=== PATIENT | male | born 1985 | race African-American/Black ===

== ENCOUNTER 2020-06-13 13:54 | Emergency (ER) | payer OTHER, SELFPAY ==
--- NOTE | ~2020-06-13 | CT_ITS ---
EXAMINATION: CT abdomen pelvis wo con DATE: 06/13/2020 14:53 INDICATION: Abdominal pain. Back pain. Hematuria. TECHNIQUE: Computed tomography (CT) of the abdomen and pelvis was performed without intravenous contr ast. Automated exposure control and iterative reconstruction technique were employed. The dose-length product was 919.41 mGy-cm. COMPARISON: None. FINDINGS: The visualized portions of the lung bases are clear without pneumonia or pleural effusion. The heart size is normal. No pericardial effusion. The liver, gallbladder, spleen, pancreas, adrenal glands, and kidneys are normal. There is no urolithiasis. There are no dilated loops of bowel. The ap pendix is normal. There are no pathologically enlarged lymph nodes. There is no free intraperitoneal fluid. There is mild lumbar spondylosis. IMPRESSION: 1. No urolithiasis. Reviewed, dictated and finalized at location B. IMPRESSION: 1. No urolithiasis.
[2020-06-13 13:55] VITALS: BP 135/87; PULSE 67; RESP 16; TEMP 36.6; O2SAT 99
[2020-06-13 14:28] LABS: Add Urine Microscopic? YES; Appearance Urine Clear (Clear); Bilirubin Urine Negative (Negative); Blood Urine 1+ (Negative); Color Urine Yellow (Yellow); Glucose Urine UA Negative (Negative); Ketones Urine Negative (Negative); Leukocyte Esterase Ur Trace LEU/UL (Negative); Mucus Urine Rare /lpf; Nitrate Urine Negative (Negative); Protein Urine Negative (Negative); Specific Grav Ur 1.025 (1.001-1.035); Squamous Epithelial Cell Urine Occasional /hpf (Few); Urobilinogen Urine Negative mg/dL (<2.0)
[2020-06-13 14:53] LABS: Basophils Percent Auto 0.3 % (0.2-1.2); Eosinophils Percent Auto 0.5 % (0-4.4); Hematocrit 45.9 % (42.0-52.0); Hemoglobin 16.2 g/dL (14.0-18.0); Immature Granulocyte Absolute 0.03 K/mm3 (0.00-0.031); Immature Granulocyte Percent A 0.5 % (0-0.5); Lymphocytes Absolute Auto 1.82 K/mm3 (0.9-3.2); Lymphocytes Percent Auto 30.9 % (18.3-44.2); Mean Corpuscular HGB Conc 35.3 g/dl (32-36); Mean Corpuscular Hemoglobin 30.5 pg (26-34); Mean Corpuscular Volume 86.3 fl (80-100); Mean Platelet Volume 10.2 fl (7.4-10.4); Monocytes Absolute Auto 0.7 K/mm3 (0.1-0.6); Monocytes Percent Auto 11.4 % (2.6-8.5); Neutrophils Absolute Auto 3.3 K/mm3 (1.3-6.7); Neutrophils Percent Auto 56.4 % (45.5-73.1); Platelet Count Result 229 k/mm3 (150-375); Red Blood Count 5.32 M/mm3 (4.6-6.20); Red Cell Distribution Width 13.1 % (11.5-14.5); White Blood Count 5.9 K/mm3 (4.5-10.0)
--- NOTE | 2020-06-13 14:54 | PC.NURSE ---
spoke with shyanne in the lab, states she will attempt to add on the std cultures to the urine sample that was already in the lab.
[2020-06-13 15:04] LABS: Anion Gap 5 mmol/L (8-16); Blood Urea Nitrogen 20 mg/dL (9-20); Calcium 9.3 mg/dL (8.4-10.2); Carbon Dioxide 31 mmol/L (22-30); Chloride 103 mmol/L (98-107); Estimated CRCL calculation 116 ml/min; Estimated Glomerular Filt Rate > 60; Glucose 85 mg/dL (75-110); Potassium 4.6 mmol/L (3.4-5.0); Sodium 139 mmol/L (137-145)
--- NOTE | 2020-06-13 16:08 | ED.MALEGU ---
HPI - Male Genitourinary General Chief complaint: Urogenital-Male Stated complaint: BLOOD IN URINE Time Seen by Provider: 06/13/20 14:24 Source: patient Mode of arrival: ambulatory Limitations: no limitations History of Present Illness HPI Narrative: This is a 34-year-old male that presents to the emergency department for dysuria since this morning. Also reports hematuria. Reports some intermittent abdominal and low back pain. No known injury or trauma. Reports he does not think he has any concern for STDs. Denies fever, nausea, vomiting. Related Data Allergies Allergy/AdvReac Type Severity Reaction Status Date / Time No Known Allergies Allergy Verified 09/15/19 22:22 Review of Systems Review of Systems: Narrative: CONSTITUTIONAL: Denies fever GASTROINTESTINAL: Reports abdominal pain. Denies nausea, vomiting GENITOURINARY: Reports dysuria and hematuria. SKIN: Denies rash All systems reviewed & are unremarkable except as noted in HPI and below PMFSH Past Medical History Medical History (Updated 06/13/20 @ 16:19 by Renae Espinoza PA-C) Healthy adult male Surgical History Surgical History (Updated 09/15/19 @ 23:15 by Crispin Crowell) No history of previous surgery Social History Social History (Updated 06/13/20 @ 16:16 by Renae Espinoza PA-C) Smoking status: Current every day smoker Tobacco type: e-cigarettes/vaping Substance use type: marijuana Gender identity (if verbalized by the patient): Male Exam Narrative: Exam Narrative: GENERAL: Well-appearing, well-nourished, and in no acute distress. HEAD: Normocephalic, atraumatic. EYES: EOMI. CHEST: Clear to auscultation. No respiratory distress. No wheezes rales or rhonchi HEART: Regular rate and rhythm. No murmur heard. Normal peripheral pulses. ABDOMEN: Soft, nontender, nondistended, normal active bowel sounds. No CVA tenderness EXTREMITIES: Normal range of motion. No edema. SKIN: Warm, dry, no rash. NEURO: No focal deficits. Alert and oriented x3. PSYCH: Normal mood and affect Course Vital Signs Vital signs: Vital Signs Temperature 97.9 F 06/13/20 13:55 Pulse Rate 67 06/13/20 13:55 Respiratory Rate 16 06/13/20 13:55 Blood Pressure 135/87 06/13/20 13:55 Pulse Oximetry 99 06/13/20 13:55 Temperature 97.9 F 06/13/20 13:55 Pulse Rate 67 06/13/20 13:55 Respiratory Rate 16 06/13/20 13:55 Blood Pressure 135/87 06/13/20 13:55 Pulse Oximetry 99 06/13/20 13:55 MDM - Male Genitourinary MDM Narrative Medical decision making narrative: Patient presents the emergency department for dysuria and hematuria. He is afebrile and nontoxic-appearing. CBC is without leukocytosis. Metabolic panel without concerning findings. UA with 10-15 white blood cells, red blood cells, and trace leuk esterase. This will go for a culture. Patient did want to be tested for STDs. Chlamydia, gonorrhea, and trichomonas sent. Patient reports he will follow-up with results, and does not want to be presumptively treated. CT scan of the abdomen and pelvis is without acute findings. Patient stable and felt appropriate for further outpatient evaluation. Patient will be treated with oral antibiotics for urinary tract infection. He is to follow-up with primary care doctor. He was given warnings to return to the ER Lab Data Attestation: I reviewed the patient's lab results. Result diagrams: 06/13/20 14:46 06/13/20 14:46 Labs: Lab Results 06/13/20 06/13/20 06/13/20 Range/Units 14:11 14:11 14:46 WBC 5.9 (4.5-10.0) K/mm3 RBC 5.32 (4.6-6.20) M/mm3 Hgb 16.2 (14.0-18.0) g/dL Hct 45.9 (42.0-52.0) % MCV 86.3 (80-100) fl MCH 30.5 (26-34) pg MCHC 35.3 (32-36) g/dl RDW 13.1 (11.5-14.5) % Plt Count 229 (150-375) k/mm3 MPV 10.2 (7.4-10.4) fl Immature Gran % (Auto) 0.5 (0-0.5) % Neut % (Auto) 56.4 (45.5-73.1) % Lymph % (Auto) 30.9 (18.3-44.2)
[2020-06-13 16:18] VITALS: BP 118/68; PULSE 78; RESP 16; O2SAT 100
== END 2020-06-13 16:38 | disposition home or self-care (01) ==
PROVIDERS: Emergency Medicine; Physician Assistant; Emergency Provider Emergency Medicine
DX: N30.01 Acute cystitis with hematuria (principal); F17.290 Nicotine dependence, other tobacco product, uncomplicated
CPT/HCPCS: 36415; 74176; 80048; 81001; 85025; 87086; 87491; 87591; 87661; 99284

== ENCOUNTER 2020-07-04 14:57 | Emergency (ER) | payer OTHER, SELFPAY ==
[2020-07-04 14:59] VITALS: BP 129/75; PULSE 66; RESP 20; TEMP 36.1; O2SAT 100
[2020-07-04 16:11] LABS: Add Urine Microscopic? YES; Appearance Urine Clear (Clear); Bilirubin Urine Negative (Negative); Blood Urine 1+ (Negative); Color Urine Yellow (Yellow); Glucose Urine UA Negative (Negative); Ketones Urine Negative (Negative); Leukocyte Esterase Ur 1+ LEU/UL (Negative); Mucus Urine Few /lpf; Nitrate Urine Negative (Negative); Protein Urine 1+ mg/dL (Negative); RBC Urine 0-2 /hpf (0-2); Squamous Epithelial Cell Urine Rare /hpf (Few); Urobilinogen Urine Negative mg/dL (<2.0)
[2020-07-04 16:12] LABS: Specific Grav Ur 1.031 (1.001-1.035)
--- NOTE | 2020-07-04 17:16 | ED.MALEGU ---
HPI - Male Genitourinary General Chief complaint: Urogenital-Male Stated complaint: hematuria, recent uti Time Seen by Provider: 07/04/20 16:56 Source: patient Mode of arrival: ambulatory Limitations: no limitations History of Present Illness HPI Narrative: This is a 34 year old male that presents to the ER for hematuria this morning. Associated with intermittent dysuria. I saw him for this last month and STD testing was negative. He denies any new partners since. Reports relief of symptoms with antibiotics, but then symptoms have returned. Reports some trouble with his stream. He does not feel like he is retaining urine though. Denies fever, abdominal pain, vomiting, or flank pain. Related Data Allergies Allergy/AdvReac Type Severity Reaction Status Date / Time No Known Allergies Allergy Verified 09/15/19 22:22 Review of Systems Review of Systems: Narrative: CONSTITUTIONAL: Denies fever GASTROINTESTINAL: Denies abdominal pain, nausea, vomiting GENITOURINARY: Reports dysuria and hematuria. SKIN: Denies rash All systems reviewed & are unremarkable except as noted in HPI and below PMFSH Past Medical History Medical History (Updated 07/04/20 @ 17:24 by Renae Espinoza PA-C) Healthy adult male Surgical History Surgical History (Updated 09/15/19 @ 23:15 by Crispin Crowell) No history of previous surgery Social History Social History (Updated 06/13/20 @ 16:16 by Renae Espinoza PA-C) Smoking status: Current every day smoker Tobacco type: e-cigarettes/vaping Substance use type: marijuana Gender identity (if verbalized by the patient): Male Exam Narrative: Exam Narrative: GENERAL: Well-appearing, well-nourished, and in no acute distress. HEAD: Normocephalic, atraumatic. EYES: EOMI. CHEST: Clear to auscultation. No respiratory distress. No wheezes rales or rhonchi HEART: Regular rate and rhythm. No murmur heard. Normal peripheral pulses. ABDOMEN: Soft, nontender, nondistended, normal active bowel sounds. No CVA tenderness EXTREMITIES: Normal range of motion. No edema. SKIN: Warm, dry, no rash. NEURO: No focal deficits. Alert and oriented x3. PSYCH: Normal mood and affect Course Vital Signs Vital signs: Vital Signs Temperature 97.0 F L 07/04/20 14:59 Pulse Rate 66 07/04/20 14:59 Respiratory Rate 20 07/04/20 14:59 Blood Pressure 129/75 07/04/20 14:59 Pulse Oximetry 100 07/04/20 14:59 Temperature 97.0 F L 07/04/20 14:59 Pulse Rate 66 07/04/20 14:59 Respiratory Rate 20 07/04/20 14:59 Blood Pressure 129/75 07/04/20 14:59 Pulse Oximetry 100 07/04/20 14:59 MDM - Male Genitourinary MDM Narrative Medical decision making narrative: Patient presents to the emergency department for dysuria and hematuria. I recently saw patient for similar symptoms. His chlamydia, gonorrhea and trichomonas came back negative. He does not report any new partner since then. He does report relief after the antibiotics, but the symptoms have returned again. He does report some trouble with his stream as well. He does not feel like he is retaining urine though. Denies any fever, abdominal pain, or flank pain. UA with 1+ leuk esterase and 79 white blood cells. Patient will be given course of oral antibiotics again. Patient will also given trial of Flomax to help with LUTS. Reports he has been told in the past his prostate is enlarged. He will be given follow-up with urology. Patient is stable and felt appropriate further outpatient evaluation. He was given warnings to return to the ER Lab Data Attestation: I reviewed the patient's lab results. Labs: Lab Results 07/04/20 Range/Units 15:53 Urine Color Yellow (Yellow) Urine Appearance Clear (Clear) Urine pH 6.0 (5.0-9.0) Ur Specific [place] 1.031 (1.001-1.035) Urine Protein 1+ H (Negative) mg/dL Urine Glucose (UA) Negative (Negative) mg/dL Urine Ketones Negative (Negative) mg/dL Ur Blood (Man) 1+ H (Negativ
[2020-07-04 18:24] VITALS: BP 122/68; PULSE 78; RESP 16; O2SAT 100
== END 2020-07-04 18:24 | disposition home or self-care (01) ==
PROVIDERS: Emergency Provider Emergency Medicine
DX: N30.01 Acute cystitis with hematuria (principal); N40.1 Benign prostatic hyperplasia with lower urinary tract symptoms; F17.200 Nicotine dependence, unspecified, uncomplicated
CPT/HCPCS: 81001; 87086; 99283